=== PATIENT | male | born 1995 | race Asian ===

== ENCOUNTER 2019-07-05 21:50 | Emergency (ER) | payer SELFPAY ==
[2019-07-05 22:08] VITALS: BP 132/82; PULSE 105; TEMP 99.3; BMI 28.1
--- NOTE | 2019-07-05 23:17 | PDOC ---
History of Present Illness - General Chief Complaint: Respiratory Stated Complaint: COLD SYMPTOMS Time Seen by Provider: 07/05/19 23:17 History Source: Patient - History of Present Illness Initial Comments: 07/06/19 00:12 24 year old male c/o chest congestion currently on day 2 of Zpack by urgent care. patient reports that fever has gotten better. patient reports cough is worsening. denies hemoptysis, fever/ chills, chest pain, nausea, vomiting. PMHX: none Current everyday cigarette smoker smokes 10 per day. Past History - Past Medical History Allergies/Adverse Reactions: Allergies Allergy/AdvReac Type Severity Reaction Status Date / Time No Known Allergies Allergy Verified 07/05/19 22:03 Home Medications: Ambulatory Orders Albuterol Sulfate Inhaler - [Ventolin HFA Inhaler -] 1 - 2 inh PO QID PRN #1 inhaler 07/06/19 Benzonatate [Tessalon Pearls -] 100 mg PO TID PRN #21 capsule 07/06/19 Fluticasone Prop 0.05% Nasal [Flonase -] 1 - 2 spray NS BID #1 spray.pump - Psycho Social/Smoking Cessation Hx Smoking History: Former smoker Have you smoked in the past 12 months: Yes Number of Cigarettes Smoked Daily: 5 If you are a former smoker, when did you quit?: 06/19/2019 Information on smoking cessation initiated: Yes Hx Alcohol Use: No Drug/Substance Use Hx: No Review of Systems - Review of Systems Able to Perform ROS?: Yes Is the patient limited Marshallese proficient: No Constitutional: No: Symptoms Reported, See HPI, Chills, Diaphoresis, Fever, Loss of Appetite, Malaise, Night Sweats, Weakness, Weight Stable, Unintentional Wgt. Loss, Unexplained wgt Loss, Other Respiratory: Yes: Cough, Shortness of Breath. No: Symptoms reported, See HPI, Orthopnea, SOB with Exertion, SOB at Rest, Stridor, Wheezing, Hemoptysis, Other Cardiac (ROS): No: Symptoms Reported, See HPI, Chest Pain, Edema, Irregular Heart Rate, Lightheadedness, Palpitations, Syncope, Chest Tightness, Other ABD/GI: No: Symptoms Reported, See HPI, Abdominal Distended, Abd. Pain w/ defecation, Blood Streaked Bowels, Constipated, Diarrhea, Difficulty Swallowing , Nausea, Poor Appetite, Poor Fluid Intake, Rectal Bleeding, Vomiting, Indigestion, Abdominal cramping, Tarry Stools, Other *Physical Exam - Vital Signs Last Vital Signs Temp Pulse Resp BP Pulse Ox 99.3 F 105 H 20 132/82 97 07/05/19 22:03 07/05/19 22:03 07/05/19 22:03 07/05/19 22:03 07/05/19 22:03 - Physical Exam General Appearance: Yes: Appropriately Dressed Respiratory/Chest: positive: Rhonchi, Other (dry cough) Cardiovascular: positive: Regular Rhythm, Regular Rate Gastrointestinal/Abdominal: positive: Normal Bowel Sounds, Soft. negative: Tender Extremity: positive: Normal Capillary Refill, Normal Inspection Integumentary: positive: Normal Color, Dry, Warm Neurologic: positive: Fully Oriented, Alert, Normal Mood/Affect ED Progress Note - Progress Note Progress Note: A: bronchitis P: albuterol tessleon chest xray flonase Discharge - Discharge Information Problems reviewed: Yes Clinical Impression/Diagnosis: Bronchitis Condition: Stable Disposition: HOME - Additional Discharge Information Prescriptions: Albuterol Sulfate Inhaler - [Ventolin HFA Inhaler -] 1 - 2 inh PO QID PRN #1 inhaler PRN Reason: Asthma Benzonatate [Tessalon Pearls -] 100 mg PO TID PRN #21 capsule PRN Reason: Cough Fluticasone Prop 0.05% Nasal [Flonase -] 1 - 2 spray NS BID #1 spray.pump - Follow up/Referral - Patient Discharge Instructions Patient Printed Discharge Instructions: DI for Acute Bronchitis Additional Instructions: drink plenty of fluids. continue to finish your z- pack prescribed by urgent care Use albuterol every 4-6 hours as needed for chest congestion cough. Use Flonase as prescribed Use Tessalon Perles as prescribed for cough. It is important that you follow- up with your primary doctor return to the emergency room for any worsening symptoms. - Post Discharge Activity Work/Back to School Note: Back to Work
--- NOTE | 2019-07-05 23:26 | PDOC ---
*Physical Exam - Vital Signs Last Vital Signs Temp Pulse Resp BP Pulse Ox 99.3 F 105 H 20 132/82 97 07/05/19 22:03 07/05/19 22:03 07/05/19 22:03 07/05/19 22:03 07/05/19 22:03 Medical Decision Making - Medical Decision Making 07/05/19 23:25 Patient seen by the advanced practice provider under my direct supervision. Ancillary testing reviewed as necessary. I agree with plan as outlined by the advanced practice provider. Discharge - Discharge Information Problems reviewed: Yes Clinical Impression/Diagnosis: URI (upper respiratory infection) - Follow up/Referral - Patient Discharge Instructions - Post Discharge Activity
[2019-07-06] MEDS ORDERED: ALBUTEROL SO4 2.5/IPRATROPIUM 0.5 INH SOL 3 ML VIAL.NEB. NEB ONE ×2 (00:19→00:57)
== END 2019-07-06 01:38 | disposition home or self-care (01) ==
LOC: JER 21:50
PROC: 3E0F7GC Introduction of Other Therapeutic Substance into Respiratory Tract, Via Natural or Artificial Opening (ICD-10-PCS; principal; 2019-07-05)
DX: J40 Bronchitis, not specified as acute or chronic (principal); F17.210 Nicotine dependence, cigarettes, uncomplicated
CPT/HCPCS: 71046-TC-FY; 99282-25

== ENCOUNTER 2020-09-19 08:13 | Emergency (ER) | payer BC ==
[2020-09-19 08:32] VITALS: BP 121/73; PULSE 94; TEMP 98.7; BMI 28.3
[2020-09-19] MEDS ORDERED: LIDOCAINE VISCOUS 2% ORAL/TOP 20 ML UNIT-DOSE CUP MM ONE (09:41)
[2020-09-19] MEDS ORDERED: LIDOCAINE VISCOUS 2% ORAL/TOP 20 ML UNIT-DOSE CUP ONE (09:49)
== END 2020-09-19 09:50 | disposition home or self-care (01) ==
LOC: JCOVINFU 08:13
DX: J02.9 Acute pharyngitis, unspecified (principal)
CPT/HCPCS: 87070; 87804; 87880; 99283-25